=== PATIENT | female | born 1965 ===

== ENCOUNTER → 2021-12-30 | Outpatient (CLI) | payer BC | LOC: LAB SHORT 14:49 | DX: J02.9 Acute pharyngitis, unspecified (principal) | CPT/HCPCS: 87081 ==

== ENCOUNTER → 2022-09-02 | Outpatient (CLI) | payer BC | END | disposition home or self-care (01) | LOC: LAB 16:15 → LAB SHORT 16:15 | PROVIDERS: Hospitalist | DX: Z12.4 Encounter for screening for malignant neoplasm of cervix (principal) | CPT/HCPCS: G0145 ==